=== PATIENT | female | born 1960 | race Caucasian/White ===

== ENCOUNTER 2021-05-31 18:28 | Emergency (ER) | payer OTHER ==
[2021-05-31 19:44] LABS: HEMOGLOBIN 10.6 gm/dl (12.3-15.3); RED BLOOD COUNT 3.78 M/UL (4.00-5.10); WHITE BLOOD COUNT 11.3 K/UL (4.5-11.0)
[2021-05-31 20:07] LABS: BUN/CREATININE RATIO 24 (0-10)
== END 2021-06-01 18:20 | disposition home or self-care (01) ==
LOC: ER1 18:28
PROVIDERS: Physician Assistant
DX: R56.9 Unspecified convulsions (principal); C34.11 Malignant neoplasm of upper lobe, right bronchus or lung; J96.92 Respiratory failure, unspecified with hypercapnia; I26.99 Other pulmonary embolism without acute cor pulmonale; J18.9 Pneumonia, unspecified organism; J44.9 Chronic obstructive pulmonary disease, unspecified; F17.200 Nicotine dependence, unspecified, uncomplicated; C79.31 Secondary malignant neoplasm of brain; N39.0 Urinary tract infection, site not specified; Z20.822 Contact with and (suspected) exposure to COVID-19
CPT/HCPCS: 36600; 70450; 71045; 72125; 80053; 80307; 81001; 82550; 82553; 82803; 83605; 83874; 84484; 85025; 87040; 87077; 87086; 87186; 93005; 94640; 94660; 94664; 94760; 96365; 96366; 96372; 96375; 99285; G0480; J0456; J0696; J1100; J1650; J1953; J7030; Q9967; U0002

== ENCOUNTER → 2021-06-12 | Outpatient (CLI) | payer OTHER ==
[2021-06-12 16:33] LABS: HEMOGLOBIN 10.4 gm/dl (12.3-15.3); RED BLOOD COUNT 3.56 M/UL (4.00-5.10); WHITE BLOOD COUNT 12.6 K/UL (4.5-11.0)
[2021-06-12 17:03] LABS: BUN/CREATININE RATIO 22 (0-10)
== END ==
LOC: VNA 16:11
PROVIDERS: Nurse Practitioner Family
DX: R68.89 Other general symptoms and signs (principal)
CPT/HCPCS: 80053; 85025

== ENCOUNTER 2021-07-29 16:53 | Inpatient (IN) | payer OTHER ==
[~2021-07-29] VITALS: Ht 167.6 cm; Wt 59.1 kg
[2021-07-29 17:35] LABS: HEMOGLOBIN 8.6 gm/dl (12.3-15.3); RED BLOOD COUNT 3.17 M/UL (4.00-5.10); WHITE BLOOD COUNT 11.7 K/UL (4.5-11.0)
[2021-07-29 17:56] LABS: BUN/CREATININE RATIO 26 (0-10)
[2021-07-29] MEDS ORDERED: ELIQUIS2.5 MG PO (18:51)
[2021-07-29] MEDS ORDERED: GABAPENTIN300 MG PO (18:51)
[2021-07-29] MEDS ORDERED: LEVETIRACETAM500 MG PO (18:52)
--- NOTE | 2021-07-31 03:51 | NUR ---
PATIENT HAS BEEN COMPLAINING THAT HER LEGS ARE 'KILLING HER'. PATIENT DENIES PAIN IN LEGS AND WHEN ASKED IF HER LEGS FEEL MORE RESTLESS THAN PAINFUL, PATIENT SAID YES. PATIENT VISIBLY UNCOMFORTABLE AND MOVES LEGS ALL AROUND THE BED IN ATTEMPT TO GET COMFORTABLE. OBTAINED ORDER FOR REQUIP 0.5MG, PATIENT SAID THIS HELPED VERY MUCH BUT WORE OFF AFTER A COUPLE OF HOURS SO OBTAINED ORDER FOR A SECOND DOSE, WHICH HAS JUST BEEN ADMINISTERED. PATIENT HAS BEEN REPOSITIONED, CALL LIRA AND WATER CUP WITHIN REACH.
[2021-07-31 04:24] LABS: HEMOGLOBIN 8.6 gm/dl (12.3-15.3); RED BLOOD COUNT 3.19 M/UL (4.00-5.10); WHITE BLOOD COUNT 10.4 K/UL (4.5-11.0)
[2021-07-31 05:06] LABS: BUN/CREATININE RATIO 37 (0-10)
[2021-07-31] MEDS ORDERED: DEXAMETHASONE4 MG PO (12:17)
[2021-08-01 04:51] LABS: HEMOGLOBIN 8.3 gm/dl (12.3-15.3); RED BLOOD COUNT 3.03 M/UL (4.00-5.10); WHITE BLOOD COUNT 10.2 K/UL (4.5-11.0)
[2021-08-01 05:27] LABS: BUN/CREATININE RATIO 57 (0-10)
--- NOTE | 2021-08-02 12:55 | NUR ---
PATIENT O2 SATS IN THE MID 80'S ON 8L HIFLO NASAL CANULA. PATIENT HAD BEEN RESTING QUIETLY ON 6L HIFLO NC SATTING IN 90'S. RESPIRATORY CALLED. DR. JOSE LUIS RICKETTS NOTIFIED.
--- NOTE | 2021-08-06 05:17 | NUR ---
PATIENT AND FAMILY WOULD LIKE TO BE ABLE TO BE DISCHARGED HOME SOON. WEANED PATIENT FROM AIRVO TONIGHT WITH RT.CURRENTLY ON 15L HFNC AND SAT IS 100%
[2021-08-06 07:26] LABS: HEMOGLOBIN 8.7 gm/dl (12.3-15.3); RED BLOOD COUNT 3.34 M/UL (4.00-5.10); WHITE BLOOD COUNT 6.3 K/UL (4.5-11.0)
[2021-08-06 09:23] LABS: BUN/CREATININE RATIO 40 (0-10)
[2021-08-07] MEDS ORDERED: IPRAT-ALBUT 0.5-3 ML INH (19:05)
[2021-08-07] MEDS ORDERED: LIDOCAINE PAIN1 EACH TOP (19:05)
[2021-08-07] MEDS ORDERED: ACETAMINOPHEN500 MG PO (19:05)
[2021-08-07] MEDS ORDERED: REMERON 15 MG T15 MG PO (19:05)
[2021-08-07] MEDS ORDERED: PERCOCET 5/325 T1 EA PO (19:05)
[2021-08-07] MEDS ORDERED: NEBULIZER UNIT NEB (19:05)
[2021-08-07] MEDS ORDERED: NICOTINE PATCH1 EAC5 TD (19:10)
[2021-08-08 10:02] LABS: HEMOGLOBIN 8.8 gm/dl (12.3-15.3); RED BLOOD COUNT 3.26 M/UL (4.00-5.10)
[2021-08-08 10:04] LABS: WHITE BLOOD COUNT 9.8 K/UL (4.5-11.0)
--- NOTE | 2021-08-08 10:23 | NUR ---
1000 Patient's 02 Sat 86% on room air.
[2021-08-08 10:27] LABS: BUN/CREATININE RATIO 45 (0-10)
[2021-08-09 04:36] LABS: HEMOGLOBIN 7.9 gm/dl (12.3-15.3); WHITE BLOOD COUNT 10.9 K/UL (4.5-11.0)
[2021-08-09 04:51] LABS: BUN/CREATININE RATIO 52 (0-10)
[2021-08-09] MEDS ORDERED: AUGMENTIN 875-1 EACH PO ×2 (15:02→15:10)
[2021-08-09] MEDS ORDERED: LEVOFLOXACIN750 MG PO ×2 (15:02→15:15)
[2021-08-09] MEDS ORDERED: LACTINEX TABLET1 EA PO (15:10)
== END 2021-08-09 16:16 | disposition home health service (06) | DRG 177 ==
LOC: ER1 16:53 → CDU 18:28 → PROG CARE 18:28 → MED SURG 4 18:28 → PROG CARE 21:30 → MED SURG 4 08-01 14:12
PROVIDERS: Emergency Medicine; Internal Medicine; ADMIT Internal Medicine
PROC: 8E0ZXY6 Isolation (ICD-10-PCS; principal; 2021-07-29)
PROC: 3E0333Z Introduction of Anti-inflammatory into Peripheral Vein, Percutaneous Approach (ICD-10-PCS; 2021-07-29)
PROC: XW033E5 Introduction of Remdesivir Anti-infective into Peripheral Vein, Percutaneous Approach, New Technology Group 5 (ICD-10-PCS; 2021-07-29)
PROC: 5A0945A Assistance with Respiratory Ventilation, 24-96 Consecutive Hours, High Flow/Velocity Cannula (ICD-10-PCS; 2021-07-31)
PROC: 5A0945A Assistance with Respiratory Ventilation, 24-96 Consecutive Hours, High Flow/Velocity Cannula (ICD-10-PCS; 2021-08-06)
DX: U07.1 COVID-19 (principal); J12.82 Pneumonia due to coronavirus disease 2019; J96.01 Acute respiratory failure with hypoxia; G93.41 Metabolic encephalopathy; E43 Unspecified severe protein-calorie malnutrition; C79.31 Secondary malignant neoplasm of brain; J98.19 Other pulmonary collapse; Z68.1 Body mass index [BMI] 19.9 or less, adult; C34.90 Malignant neoplasm of unspecified part of unspecified bronchus or lung; C79.51 Secondary malignant neoplasm of bone; E88.09 Other disorders of plasma-protein metabolism, not elsewhere classified; F32.A Depression, unspecified; D64.9 Anemia, unspecified; L89.892 Pressure ulcer of other site, stage 2; R53.81 Other malaise; Z66 Do not resuscitate; F17.210 Nicotine dependence, cigarettes, uncomplicated; Z79.82 Long term (current) use of aspirin; Z86.711 Personal history of pulmonary embolism; Z86.718 Personal history of other venous thrombosis and embolism; Z79.01 Long term (current) use of anticoagulants; Z98.890 Other specified postprocedural states
CPT/HCPCS: 36415; 36600; 70551; 71045; 80048; 80053; 80202; 81001; 82728; 82803; 83605; 83615; 83735; 84100; 85025; 85027; 85379; 86140; 87040; 87086; 94760; 97162; 97165; 97530; 99285; J0248; J1100; J2185; J2270; J2405; J3370; J7030; J7070; Q9967; U0002